=== PATIENT | female | born 1940 | race Caucasian/White ===

== ENCOUNTER → 2017-08-09 | Outpatient (CLI) | payer MEDICARE, OTHER ==
[~2017-08-09] MED LIST: ASPI1TAB35 PO; BEN20 PO; BENA20TA8 PO; CALC200T27 PO; CHOL200021 PO; CHOL200025 PO; CLI150 PO; DOC100 PO; DOCU-416 PO; LETPT PO; LETR2.5T4 PO; LEVO50TA80 PO; LEVO50TA86 PO; LOR5 PO; MULT-820 PO; MULT-865 PO; OXYGENHOME INH; PER PO; PRAV20TA65 PO; PRAV40TA77 PO; PRAV40TA78 PO; PRO25 PO; SOLI10TA8 PO; TRIA1CAP81 PO; TUM500 PO; [UNRECOGNIZED DRUG - REMARK]
[2017-08-09 11:42] LABS: PLATELET COUNT, AUTOMATED 206 K/uL (150-450)
[2017-08-09 11:53] VITALS: BP 136/66
== END ==
LOC: SPU 07:47
PROVIDERS: ATTEND Family Medicine
DX: E11.9 Type 2 diabetes mellitus without complications (principal); I10 Essential (primary) hypertension
CPT/HCPCS: 36415; 82310; 82374; 82435; 82565; 82947; 83036; 83970; 84132; 84295; 84443; 84520; 85025

== ENCOUNTER → 2017-11-09 | Outpatient (CLI) | payer MEDICARE, OTHER ==
[~2017-11-09] MED LIST changes: +BENA20TA64 PO; -BENA20TA8 PO
--- NOTE | 2017-11-09 14:35 | RADIOLOGY IMAGING REPORT ---
FACILITY: [facility] - [place], [place] PATIENT NAME: Aleah Arvizu : 1940 MR: [id number] V: [id number] EXAM DATE: ORDERING PHYSICIAN: RADHA BARRON TECHNOLOGIST: Location: [facility] Patient: Aleah Arvizu : 1940 Visit/Account:[id number] Date of Sevice: 11/09/2017 DEXA Scan Clinical history: Postmenopausal. Comparison: DEXA scan from 11/08/2015. LUMBAR SPINE: The bone mineral density (BMD) measured from L1-L4 correlates with a Z-score 0.4 and a T-score of 0.2 which is Normal as defined by the World Health Organization. The corresponding risk of fracture in the lumbar spine is Not increased compared with a young adult reference population. This value has d ecrease by 0.3 % since the prior study. More than 5% change is considered significant. FOREARM: The bone mineral density (BMD) measured in the ULTRADISTAL Left forearm, where trabecular bone predom inates, correlates with a Z-score of -0.9 and a T-score of -3.3 which is osteoporosis as defined by t he World Health Organization. The corresponding risk of fracture in the distal forearm is 8-12 times increased compared with a young adult reference population. This value has decrease by 2.3 % since the prior study. More than 5% change is considered significant. The bone mineral density (BMD) in the MIDSHAFT of the forearm, where cortical bone predominates, yasmany elates with a Z-score of -1.5 and a T-score of -3.9 which is osteoporosis as defined by the World [facility] Organization. The corresponding risk of fracture in the midshaft of the forearm is 12-16 times in creased compared with a young adult reference population. This value has decrease by 2.3 % since the prior study. More than 5% change is considered significant. IMPRESSION: 1. Lumbar spine: Normal. There has been 0.3% decrease in the bone mineral density since the previou s exam. 2. Left Forearm: Osteoporosis. There has been 2.3% decrease in the bone mineral density since the previous exam The next DEXA scan of this patient should include the following sites: L1-L4 and the left forearm. FRAX? WHO Fracture Risk Assessment Tool link: <http://www.shef.ac.uk/FRAX/tool.jsp?locationValue=9> PLEASE NOTE: 1) The World Health Organization defines low BMD as follows: T-score Normal > -1 Osteopenia < -1 and > -2.5 Osteoporosis < -2.5 without fractures Established osteoporosis < -2.5 with fractures 2) In general, you may wish to consider: Diagnosis Treatment Follow-up DEXA Normal BMD Prevention 2-3 years Osteopenia Prevention/therapy 1-2 years Osteoporosis Therapy Yearly 3) Fracture risk estimated from the T-score is more accurate for vertebral fractures (often spontane ous) than for hip fractures. Report Dictated By: Colleen Mukherjee MD at 11/09/2017 2:28 PM Report E-Signed By: Colleen Mukherjee MD at 11/09/2017 2:31 PM FLORENCIAN:AMICIVN
--- NOTE | 2017-11-13 09:06 | RADIOLOGY IMAGING REPORT ---
FACILITY: [facility] PATIENT NAME: FELTON GORMAN : [id number] MR: [id number] V: [id number] EXAM DATE: [id number] ORDERING PHYSICIAN: RADHA BARRON TECHNOLOGIST: Johnna Muse PROCEDURE: MAMMOGRAM SCREENING RIGHT UNILATERAL WITH CAD ASSISTED INTERPRETATION & 3D TOMOSYNTHESIS COMPARISON: Prior mammograms dated 11/08/16, 11/08/15, 11/05/14, 10/29/13, 10/28/12, 10/25/11 INDICATIONS: Screening FINDINGS: A small amount of fibroglandular tissue is seen throughout the breast. The parenchymal pattern has remained stable allowing for difference in mammographic technique & patient positioning. There is no evidence of malignant appearing mass, malignant appearing calcification or other secondary sign of malignancy in the Right breast. DIAGNOSTIC CATEGORY 1--NEGATIVE. RECOMMENDATIONS: ROUTINE MAMMOGRAM AND CLINICAL EVALUATION. IMPRESSION: BIRADS 1: Negative. No significant abnormality of the Right breast is seen. Dictated by: Colleen Mukherjee M.D. on 11/09/2017 at 15:40 Transcribed by: SIERRA on 11/12/2017 at 8:14 Approved by: Colleen Mukherjee M.D. on 11/13/2017 at 9:05 [facility]
== END ==
LOC: MAMO 00:28
PROVIDERS: ATTEND Family Medicine
DX: Z12.31 Encounter for screening mammogram for malignant neoplasm of breast (principal); Z78.0 Asymptomatic menopausal state; M81.0 Age-related osteoporosis without current pathological fracture
CPT/HCPCS: 77063; 77067; 77080

== ENCOUNTER 2017-12-14 14:49 | Inpatient (IN) | payer MEDICARE, OTHER ==
[~2017-12-14] VITALS: Ht 162.6 cm; Wt 105.3 kg
[2017-12-14] VITALS (11 sets, daily range): BP systolic 87–105; BP diastolic 49–63
[2017-12-14] MEDS ORDERED: NS(*) 0.9% 500 ML BAG 500 ML IV ONE (14:52)
--- NOTE | 2017-12-14 15:04 | ER Report ---
History and Physical Time Seen By : 14:59 HPI/ROS CHIEF COMPLAINT: Rectal bleeding HISTORY OF PRESENT ILLNESS: This is a 77-year-old female presents to the emergency department for rectal bleeding. Patient was seen at her primary care providers office noted to have rectal bleeding, dizziness and hypotension subs currently was sent to the ER for further evaluation. Patient arrives alert and oriented. Lips are pale. Patient states that about 10:00 this morning she developed some hematochezia, with some clots. Some lower abdominal cramping otherwise no pain. No chest pain or shortness of breath. No nausea or vomiting. She has had some lightheadedness and dizziness this afternoon. No rashes. No headaches. No recent fevers or chills. Did have a similar episode about 10 years ago, was admitted to the hospital and has done well since. REVIEW OF SYSTEMS: Constitutional: No fever, no chills. Eyes: No discharge. ENT: No sore throat. Cardiovascular: No chest pain, no palpitations. Respiratory: No cough, no shortness of breath. Gastrointestinal: As above. Genitourinary: No hematuria. Musculoskeletal: No back pain. Skin: No rashes. Neurological: No headache. Allergies: Coded Allergies: Penicillins (Verified Allergy, Mild, RASH, 12/14/17) Sulfa (Sulfonamide Antibiotics) (Verified Allergy, Mild, RASH, 12/14/17) Home Meds Active Scripts Pravastatin Sodium (PRAVASTATIN SODIUM) 40 Mg Tablet, 1 TAB PO QDAY, #90 TAB 4 Refills Prov:RADHA BARRON MD 07/11/17 Benazepril Hcl (BENAZEPRIL HCL) 20 Mg Tab, 1 TAB PO QDAY, #90 TAB 4 Refills Prov:RADHA BARRON MD 07/11/17 Levothyroxine Sodium (LEVOTHYROXINE SODIUM) 50 Mcg Tablet, 1 TAB PO QDAY for 90 Days, #90 TAB 4 Refills Prov:RADHA BARRON MD 07/11/17 Reported Medications Docusate Sodium (COLACE) 100 Mg Capsule, 1 CAP PO DAILY, CAPSULE 07/11/17 Cholecalciferol (Vitamin D3) (VITAMIN D3) 2,000 Unit Capsule, 2 CAP PO DAILY, CAPSULE 07/11/17 Oxygen (OXYGEN) Inha, 2 L INH at Night, L 10/09/16 Multivitamin (DAILY MULTIPLE VITAMIN) 1 Each Tablet, 1 EACH PO QDAY 10/09/16 Aspirin/Acetaminophen/Caffeine (EXCEDRIN EXTRA STRENGTH CAPLET) Unknown Strength Tablet, 1 TAB PO PRN PRN for PAIN 10/09/16 Past Medical/Surgical History The patient has a past medical and surgical history of hypertension, hypercholesterolemia, COPD, ex-smoker, sleep apnea, type II diabetes, hypothyroidism, breast cancer, lumpectomy, shingles, drinks alcohol daily, K-Dur removal, mastectomy on the left, bilateral total hips, basal cell carcinoma excision. Reviewed Nurses Notes: Yes Hx Smoking: No Smoking Status: Former Smoker Constitutional Vital Sign - Last 24 Hours 12/14/17 12/14/17 12/14/17 12/14/17 14:49 14:54 14:56 14:57 Temp 97.5 Pulse ? 104 Resp 16 B/P (MAP) 100/54 (69) 100/54 Pulse Ox 91 O2 Delivery Room Air 12/14/17 12/14/17 12/14/17 12/14/17 14:59 15:04 15:14 15:19 Pulse ??? 98 97 97 Resp 10 37 12 20 Pulse Ox 93 97 92 91 12/14/17 12/14/17 12/14/17 12/14/17 15:21 15:23 15:24 15:29 Pulse 96 102 Resp 19 14 B/P (MAP) 79/47 (58) 73/47 (56) Pulse Ox 92 95 12/14/17 12/14/17 12/14/17 12/14/17 15:34 15:38 15:39 15:44 Pulse 94 84 74 Resp 26 24 51 B/P (MAP) 62/54 (57) 61/43 (49) Pulse Ox 93 93 93 12/14/17 12/14/17 12/14/17 12/14/17 15:45 15:49 15:55 15:59 Pulse 75 80 Resp 28 19 B/P (MAP) 92/43 (59) Pulse Ox 96 93 O2 Delivery Nasal Cannula Nasal Cannula O2 Flow Rate 2.0 2 2 12/14/17 12/14/17 12/14/17 12/14/17 16:00 16:05 16:09 16:10 Pulse 81 Resp 12 B/P (MAP) 76/50 (59) 85/51 (62) 78/44 (55) Pulse Ox 95 O2 Delivery Nasal Cannula 12/14/17 12/14/17 12/14/17 12/14/17 16:15 16:30 16:45 16:49 Pulse 78 82 82 Resp 16 14 14 B/P (MAP) 101/51 (68) Pulse Ox 95 96 96 O2 Delivery Nasal Cannula Nasal Cannula Nasal Cannula O2 Flow Rate 2 2 2 12/14/17 12/14/17 12/14/17 12/14/17 17:12 17:15 17:20 17:30 Pulse 78 80 Resp 11 14 B/P (MAP) 96/45 (62) 71/41 (51) Pulse Ox 96 96 O2 Delivery Nasal Cannula Nasal Cannula O2 Flow Rate 2 2 12/14/17 12/14/17 12/14/17 12/14/17 17:35 17:45 17:50 18:00 Pulse 81 81 Resp 9 9 B/P (MAP) 81/69 (73) 94/47 (63) Pulse Ox 96 96 O2 Delivery Nasal Cannula Nasal Cannula O2 Flow Rate 2 2 12/14/17 12/14/17 12/14/17 12/14/17 18:05 18:10 18:15 18:30 Pulse 75 81 80 Resp 24 18 14 B/P (MAP) 87/58 (68) 88/47 (61) Pulse Ox 96 97 96 O2 Delivery Nasal Cannula Nasal Cannula Nasal Cannula O2 Flow Rate 2 2 2 12/14/17 12/14/17 12/14/17 12/14/17 18:35 18:40 18:45 18:55 Pulse 83 87 Resp 31 21 B/P (MAP) 84/41 (55) 84/39 (54) Pulse Ox 97 95 12/14/17 12/14/17 12/14/17 12/14/17 19:00 19:10 19:15 19:25 Pulse 85 96 Resp 12 25 B/P (MAP) 100/45 (63) 107/57 (74) Pulse Ox 96 96 12/14/17 12/14/17 12/14/17 12/14/17 19:26 19:30 19:35 19:40 Pulse 96 Resp 16 B/P (MAP) 96/68 (77) 83/47 (59) 94/46 (62) Pulse Ox 95 Intake and Output 9/12/14/17 12/15/17 15:00 23:00 07:00 Intake Total 1555 ml Output Total 20 ml Balance 1535 ml Physical Exam General Appearance: The patient is alert, pale, has no immediate need for airway protection and no signs of toxicity. Eyes: Pupils equal and round no pallor or injection. EOM's intact. Pale conjunctiva. ENT, Mouth: Mucous membranes are moist. Respiratory: There are no retractions, lungs are clear to auscultation. Cardiovascular: Regular rate and rhythm, no murmurs, clicks or rubs. Gastrointestinal: Abdomen is soft and, mild left sided tenderness, no masses, bowel sounds normal. No abdominal bruits. Initial exam showing hematochezia, progressing into melena. External exam of rectum unremarkable. Neurological: Alert and oriented X4, moving all extremities, following all commands, no focal neuro deficits. Skin: Warm and dry, no rashes. Musculoskeletal: Neck is supple non tender. Extremities are nontender, nonswollen and have full range of motion. DIFFERENTIAL DIAGNOSIS: After history and physical exam differential diagnosis was considered for abdominal pain in a female including but not limited to ovarian cyst, hemorrhoids, colitis, diverticulitis, pelvic inflammatory disease, ovarian torsion, urinary tract infection, and appendicitis. Medical Decision Making Data Points Result Diagram: 12/15/17 0511 12/15/17 0511 Laboratory Hematology Test 12/14/17 00:00 12/14/17 18:07 12/14/17 18:36 Total Bilirubin 0.6 mg/dl (0.2-1.3) Aspartate Amino Transf (AST/SGOT) 23 U/L (0-35) Alanine Aminotransferase (ALT/SGPT) 26 U/L (0-56) Alkaline Phosphatase 68 U/L (0-126) Total Protein 6.3 g/dl (6.3-8.2) Albumin 3.7 g/dl (3.5-5.0) Urine Color Yellow Urine Clarity Clear Urine pH 5.0 pH (4.8-9.5) Urine Specific [place] S3 Urine Protein Negative mg/dL (NEGATIVE) Urine Glucose (UA) Negative mg/dL (NEGATIVE) Urine Ketones Negative mg/dL (NEGATIVE) Urine Blood Negative (NEGATIVE) Urine Nitrite Negative (NEGATIVE) Urine Bilirubin Negative (NEGATIVE) Urine Urobilinogen Negative mg/dL (0.2-1.9) Urine Leukocyte Esterase Negative (NEGATIVE) Urine RBC 1 /HPF (0-2/HPF) Urine WBC None /HPF (0-5/HPF) Urine Squamous Epithelial Cells None /LPF (NONE-FEW) Urine Bacteria Negative /HPF (NONE-FEW) Urine Mucus None /HPF (NONE-FEW) Activated Partial Thromboplast Time 21 seconds (23-35) Chemistry Test 12/14/17 00:00 12/14/17 18:07 12/14/17 18:36 Total Bilirubin 0.6 mg/dl (0.2-1.3) Aspartate Amino Transf (AST/SGOT) 23 U/L (0-35) Alanine Aminotransferase (ALT/SGPT) 26 U/L (0-56) Alkaline Phosphatase 68 U/L (0-126) Total Protein 6.3 g/dl (6.3-8.2) Albumin 3.7 g/dl (3.5-5.0) Urine Color Yellow Urine Clarity Clear Urine pH 5.0 pH (4.8-9.5) Urine Specific [place] S3 Urine Protein Negative mg/dL (NEGATIVE) Urine Glucose (UA) Negative mg/dL (NEGATIVE) Urine Ketones Negative mg/dL (NEGATIVE) Urine Blood Negative (NEGATIVE) Urine Nitrite Negative (NEGATIVE) Urine Bilirubin Negative (NEGATIVE) Urine Urobilinogen Negative mg/dL (0.2-1.9) Urine Leukocyte Esterase Negative (NEGATIVE) Urine RBC 1 /HPF (0-2/HPF) Urine WBC None /HPF (0-5/HPF) Urine Squamous Epithelial Cells None /LPF (NONE-FEW) Urine Bacteria Negative /HPF (NONE-FEW) Urine Mucus None /HPF (NONE-FEW) Activated Partial Thromboplast Time 21 seconds (23-35) Coagulation Test 12/14/17 18:36 Activated Partial Thromboplast Time 21 seconds Urinalysis Test 12/14/17 18:07 Urine Color Yellow Urine Clarity Clear Urine pH 5.0 pH (4.8-9.5) Urine Specific [place] S3 Urine Protein Negative mg/dL (NEGATIVE) Urine Glucose (UA) Negative mg/dL (NEGATIVE) Urine Ketones Negative mg/dL (NEGATIVE) Urine Blood Negative (NEGATIVE) Urine Nitrite Negative (NEGATIVE) Urine Bilirubin Negative (NEGATIVE) Urine Urobilinogen Negative mg/dL (0.2-1.9) Urine Leukocyte Esterase Negative (NEGATIVE) Urine RBC 1 /HPF (0-2/HPF) Urine WBC None /HPF (0-5/HPF) Urine Squamous Epithelial Cells None /LPF (NONE-FEW) Urine Bacteria Negative /HPF (NONE-FEW) Urine Mucus None /HPF (NONE-FEW) EKG/Imaging EKG Interpretation 12 lead EKG: Time of EKG 1505. Rhythm: Sinus rhythm, Ventricular rate of 99bpm. [place]: Left QRS: Right bundle branch block ST segments: No ST elevation or Depression identified. No previous ekg for comparison. Imaging ADDENDUM #1 Addendum: The correct title for this study is "CTA of the chest, abdomen, and pelvis followed by routine contrast enhanced CT of the chest, abdomen, and pelvis". Report content is otherwise unchanged. Report Dictated By: Jose Gonzalez MD at 12/14/2017 8:29 PM Report E-Signed By: Jose Gonzalez MD at 12/14/2017 8:31 PM ORIGINAL REPORT Examination: CT chest, abdomen, and pelvis with contrast Comparison: None. History: Back pain and rectal bleeding. Procedure: Multiplanar arterial and venous phase imaging of the chest, abdomen, and pelvis with 100 mL intravenous Isovue 370. Reconstruction of the source data set includes multiplanar 2D in the sagittal and coronal planes, and 3D reconstructed coronal slab MIP series. One of the following dose optimization techniques was utilized in the performance of this exam: Automated exposure control; adjustment of the mA and/or kV according to the patient's size; or use of an iterative reconstruction technique. Specific details can be referenced in the facility's radiology CT exam operational policy. Findings: CTA: Advanced coronary calcifications. Questionable aortic valve calcification. Distal aortic arch and descending thoracic aorta advanced atherosclerosis. Advanced atherosclerotic plaque is also noted along the abdominal aorta, iliac arteries, and mesenteric vessels. No aortoiliac aneurysm or dissection. Dense calcification is present in the origins of the arch vessels but there is no evidence of significant luminal narrowing. Focal calcified plaque at the celiac artery, superior mesenteric artery, and left main renal artery origin results in mild stenosis (less than 50%). The inferior mesenteric artery is patent. CT chest: Mediastinum: Cardiac chamber size is normal. No pericardial effusion. Advanced coronary calcifications.4.2 cm dilated main pulmonary artery suggestive of pulmonary artery hypertension. Lungs and pleura: Scattered small regions of volume loss versus scarring. No consolidation or nodule. No pneumothorax, edema, or effusion. Airways: Negative. Diaphragm: Intact. CT abdomen and pelvis: Liver: Negative Gallbladder and biliary system: Negative Spleen: Negative Pancreas: Negative Adrenal glands: Negative Kidneys and urinary bladder: No renal mass or hydronephrosis. A few small cysts are present. The urinary bladder is partially obscured by streak artifact from the hip arthroplasties. Vessels: Portal venous system and IVC are within normal limits. Bowel and mesentery: Stomach is within normal limits. Large duodenal diverticula. No small bowel obstruction or inflammation. Appendix is unremarkable. Small amount of stool in the colon. Pancolonic diverticulosis with moderate diverticulosis of the sigmoid colon. No definite evidence of diverticular inflammation is identified. There is focal hyperdensity layering within the bowel lumen at the junction of the descending and sigmoid colon (series 3 image 578). This increases between the arterial and venous phases of the study and is suspicious for active hemorrhage. Pelvic organs: Age-appropriate. Free air/free fluid: None Lymph nodes: Negative Abdominal wall and subcutaneous tissues: Abdominal wall is intact. No focal abnormality within the visualized subcutaneous soft tissues. Osseous structures: Bilateral total hip arthroplasties. L4-L5 moderate degenerative disc disease with mild canal and lateral recess stenosis. Mild degenerative changes present elsewhere in the thoracolumbar spine. Right glenohumeral moderate osteoarthritis. No acute findings. IMPRESSION: 1. Pancolonic diverticulosis with findings suspicious for active colonic hemorrh ge at the junction of the descending and sigmoid colon. 2. Advanced coronary, aortoiliac, and mesenteric atherosclerosis. No aortic aneurysm. 3. Additional chronic findings as described above.Results were discussed with NAM PICKETT at 12/14/2017 6:03 PM. Report Dictated By: Jose Gonzalez MD at 12/14/2017 5:42 PM Report E-Signed By: Jose Gonzalez MD at 12/14/2017 6:12 PM WSN:[id number] IMPRESSION: 1. Pancolonic diverticulosis with findings suspicious for active colonic hemorrh ge at the junction of the descending and sigmoid colon. 2. Advanced coronary, aortoiliac, and mesenteric atherosclerosis. No aortic aneurysm. 3. Additional chronic findings as described above.Results were discussed with NAM PICKETT at 12/14/2017 6:03 PM. Report Dictated By: Jose Gonzalez MD at 12/14/2017 5:42 PM Report E-Signed By: Jose Gonzalez MD at 12/14/2017 6:12 PM WSN:[id number] ED Course/Re-evaluation Clinical Indication for ER IV: Hypotention, IV Access ED Course The patient was admitted to a room. A history of physical were obtained. Differential diagnoses were considered. An IV was started. A CBC, CMP, type and screen was obtained. Initial H&H 14.3, and 41.7, repeat after a one liter NS fluid bolus and one unit of blood 12.8, 37.7. Patient did have a hypotensive event as noted below. Now having some melena stools. She is now hypotensive with a blood pressure in the 60s systolic. Difficult IV access. We were able to gain IV access with a 20ga x 1.5inch to the right cephalic, a 20ga to the right hand and a 20ga to the left medial ankle. After fluid bolus given and one unit of O neg blood the patients color improved, her pressures did improve, to the 80's systolic. She was given an additional fluid bolus with pressures in the 90's systolic. While in the ED the patient had two large melena stools. After the patient was stable, did a CTA of the chest, with a chest, abd, pelvis ct showing, Pancolonic diverticulosis with findings suspicious for active colonic hemorrhage at the junction of the descending and sigmoid colon. I did contact Dr. Robledo as noted below. After his evaluation the patient was given a 20mcg desmopressin, attempted a central line which was unsuccessful. Pt was given one more unit of blood in the ED, BP 96 systolic, hr in the 90's. The patient will be receiving platelets. the patient will be admitted to the ICU for colonic hemorrhage. 12/14/2017 3:56:02 pm The patients daughter was at the beside, yelled out for help, her mother became diaphoretic, pale and had a near syncopal episode, this lasted a couple of minutes. Her systolic pressures were in the 60's-70's, hr remained in the 70's. Palor did improve. 12/14/2017 4:22:18 pm the patient was probably moved to trauma room 5, additional IV and the foot was started, IV fluid boluses were given, O- blood was given. Patient continues to have melena stools. Dr. Kelechi Camarillo is at the bedside with me, he is ultrasounding the patient's chest and abdomen, the daughter is at the bedside. Patient will be sent over to radiology, she is stabilized, blood pressures have improved, last blood pressure in the 80s systolic. Patient states she is feeling better. There is a concern of an aneurysm. At this time Dr. Camarillo did ask the patient what her code status is, she does not want resuscitation or ventilation, she is okay with intubation for surgery, if this was required. 12/14/2017 4:44:[address] Camarillo was able to use the ultra sound and cannulate a vein in the right upper arm. 12/14/2017 6:23:05 pm I did speak with Dr. Robledo, he will be coming to evaluate the patient. 12/14/2017 7:32:[address] Robledo here, will place central line, will admit to ICU for colonic hemorrhage. Decision to Disposition Date: Dec 14, 2017 Decision to Disposition Time: 19:30 Depart Departure Latest Vital Signs Vital Signs Date Time Temp Pulse Resp B/P (MAP) Pulse Ox O2 Delivery O2 Flow Rate FiO2 12/14/17 19:40 94/46 (62) 12/14/17 19:35 96 16 95 12/14/17 18:30 Nasal Cannula 2 12/14/17 14:57 97.5 Impression: Primary Impression: Colonic hemorrhage Condition: Critical Disposition: Admitted from ER (To ICU) Referrals: RADHA BARRON MD (PCP) NAM PICKETT [employer] Dec 14, 2017 15:04
--- NOTE | 2017-12-14 15:12 | EKG ---
FACILITY: [facility] PATIENT NAME: FELTON GORMAN : [id number] MR: [id number] V: [id number] EXAM DATE: ORDERING PHYSICIAN: NAM PICKETT TECHNOLOGIST: CHANEL Test Reason : HYPERTENSION Blood Pressure : / mmHG Vent. Rate : 099 BPM Atrial Rate : 099 BPM P-R Int : 164 ms QRS Dur : 132 ms QT Int : 378 ms P-R-T Axes : 035 -71 022 degrees QTc Int : 485 ms Sinus rhythm with occasional premature ventricular complexes Left axis deviation Right bundle branch block Inferior infarct , age undetermined Abnormal ECG No previous ECGs available Confirmed by DRISS CASTRO ([id number]) on 12/14/2017 6:57:42 PM Referred By: Confirmed By:DRISS CASTRO
[2017-12-14 15:51] LABS: PLATELET COUNT, AUTOMATED 348 K/uL (150-450)
[2017-12-14] MEDS ORDERED: NS(*) 0.9% 1000 ML BAG 1,000 ML IV ONE (16:05)
[2017-12-14] MEDS ORDERED: NS(*) 0.9% 50 ML BAG 50 ML ONE (16:24)
[2017-12-14] MEDS ORDERED: IOPAMIDOL 76% 75 ML INFUS BTL 0 ML ONE (16:24)
[2017-12-14] MEDS ORDERED: IOPAMIDOL 76% 100 ML INFUS BTL 100 ML ONE (16:26)
[2017-12-14 17:46] LABS: PLATELET COUNT, AUTOMATED 234 K/uL (150-450)
--- NOTE | 2017-12-14 18:15 | RADIOLOGY IMAGING REPORT ---
FACILITY: [facility] PATIENT NAME: Aleah Arvizu : 1940 MR: [id number] V: [id number] EXAM DATE: ORDERING PHYSICIAN: NAM PICKETT TECHNOLOGIST: Location: [facility] Patient: Aleah Arvizu : 1940 Visit/Account:[id number] Date of Sevice: 12/14/2017 ADDENDUM #1 Addendum: The correct title for this study is "CTA of the chest, abdomen, and pelvis followed by rout ine contrast enhanced CT of the chest, abdomen, and pelvis". Report content is otherwise unchanged. Report Dictated By: Jose Gonzalez MD at 12/14/2017 8:29 PM Report E-Signed By: Jose Gonzalez MD at 12/14/2017 8:31 PM ORIGINAL REPORT Examination: CT chest, abdomen, and pelvis with contrast Comparison: None. History: Back pain and rectal bleeding. Procedure: Multiplanar arterial and venous phase imaging of the chest, abdomen, and pelvis with 100 m L intravenous Isovue 370. Reconstruction of the source data set includes multiplanar 2D in the sagitt al and coronal planes, and 3D reconstructed coronal slab MIP series. One of the following dose optimization techniques was utilized in the performance of this exam: Autom ated exposure control; adjustment of the mA and/or kV according to the patient's size; or use of an i terative reconstruction technique. Specific details can be referenced in the facility's radiology C T exam operational policy. Findings: CTA: Advanced coronary calcifications. Questionable aortic valve calcification. Distal aortic arch an d descending thoracic aorta advanced atherosclerosis. Advanced atherosclerotic plaque is also noted a long the abdominal aorta, iliac arteries, and mesenteric vessels. No aortoiliac aneurysm or dissectio n. Dense calcification is present in the origins of the arch vessels but there is no evidence of signifi cant luminal narrowing. Focal calcified plaque at the celiac artery, superior mesenteric artery, and left main renal artery o rigin results in mild stenosis (less than 50%). The inferior mesenteric artery is patent. CT chest: Mediastinum: Cardiac chamber size is normal. No pericardial effusion. Advanced coronary calcification s.4.2 cm dilated main pulmonary artery suggestive of pulmonary artery hypertension. Lungs and pleura: Scattered small regions of volume loss versus scarring. No consolidation or nodule. No pneumothorax, edema, or effusion. Airways: Negative. Diaphragm: Intact. CT abdomen and pelvis: Liver: Negative Gallbladder and biliary system: Negative Spleen: Negative Pancreas: Negative Adrenal glands: Negative Kidneys and urinary bladder: No renal mass or hydronephrosis. A few small cysts are present. The urin sai bladder is partially obscured by streak artifact from the hip arthroplasties. Vessels: Portal venous system and IVC are within normal limits. Bowel and mesentery: Stomach is within normal limits. Large duodenal diverticula. No small bowel obst ruction or inflammation. Appendix is unremarkable. Small amount of stool in the colon. Pancolonic div erticulosis with moderate diverticulosis of the sigmoid colon. No definite evidence of diverticular i nflammation is identified. There is focal hyperdensity layering within the bowel lumen at the junctio n of the descending and sigmoid colon (series 3 image 578). This increases between the arterial and v enous phases of the study and is suspicious for active hemorrhage. Pelvic organs: Age-appropriate. Free air/free fluid: None Lymph nodes: Negative Abdominal wall and subcutaneous tissues: Abdominal wall is intact. No focal abnormality within the v isualized subcutaneous soft tissues. Osseous structures: Bilateral total hip arthroplasties. L4-L5 moderate degenerative disc disease with mild canal and lateral recess stenosis. Mild degenerative changes present elsewhere in the thoracolu mbar spine. Right glenohumeral moderate osteoarthritis. No acute findings. IMPRESSION: 1. Pancolonic diverticulosis with findings suspicious for active colonic hemorrh ge at the junction o f the descending and sigmoid colon. 2. Advanced coronary, aortoiliac, and mesenteric atherosclerosis. No aortic aneurysm. 3. Additional chronic findings as described above.Results were discussed with NAM PICKETT at 11/25 6:03 PM. Report Dictated By: Jose Gonzalez MD at 12/14/2017 5:42 PM Report E-Signed By: Jose Gonzalez MD at 12/14/2017 6:12 PM WSN:[id number]
--- NOTE | 2017-12-14 18:15 | RADIOLOGY IMAGING REPORT ---
FACILITY: [facility] [place] PATIENT NAME: Aleah Arvizu : 1940 MR: [id number] V: [id number] EXAM DATE: ORDERING PHYSICIAN: NAM PICKETT TECHNOLOGIST: Location: [facility] Patient: Aleah Arvizu : 1940 Visit/Account:[id number] Date of Sevice: 12/14/2017 ADDENDUM #1 Addendum: The correct title for this study is "CTA of the chest, abdomen, and pelvis followed by rout ine contrast enhanced CT of the chest, abdomen, and pelvis". Report content is otherwise unchanged. Report Dictated By: Jose Gonzalez MD at 12/14/2017 8:29 PM Report E-Signed By: Jose Gonzalez MD at 12/14/2017 8:31 PM ORIGINAL REPORT Examination: CT chest, abdomen, and pelvis with contrast Comparison: None. History: Back pain and rectal bleeding. Procedure: Multiplanar arterial and venous phase imaging of the chest, abdomen, and pelvis with 100 m L intravenous Isovue 370. Reconstruction of the source data set includes multiplanar 2D in the sagitt al and coronal planes, and 3D reconstructed coronal slab MIP series. One of the following dose optimization techniques was utilized in the performance of this exam: Autom ated exposure control; adjustment of the mA and/or kV according to the patient's size; or use of an i terative reconstruction technique. Specific details can be referenced in the facility's radiology C T exam operational policy. Findings: CTA: Advanced coronary calcifications. Questionable aortic valve calcification. Distal aortic arch an d descending thoracic aorta advanced atherosclerosis. Advanced atherosclerotic plaque is also noted a long the abdominal aorta, iliac arteries, and mesenteric vessels. No aortoiliac aneurysm or dissectio n. Dense calcification is present in the origins of the arch vessels but there is no evidence of signifi cant luminal narrowing. Focal calcified plaque at the celiac artery, superior mesenteric artery, and left main renal artery o rigin results in mild stenosis (less than 50%). The inferior mesenteric artery is patent. CT chest: Mediastinum: Cardiac chamber size is normal. No pericardial effusion. Advanced coronary calcification s.4.2 cm dilated main pulmonary artery suggestive of pulmonary artery hypertension. Lungs and pleura: Scattered small regions of volume loss versus scarring. No consolidation or nodule. No pneumothorax, edema, or effusion. Airways: Negative. Diaphragm: Intact. CT abdomen and pelvis: Liver: Negative Gallbladder and biliary system: Negative Spleen: Negative Pancreas: Negative Adrenal glands: Negative Kidneys and urinary bladder: No renal mass or hydronephrosis. A few small cysts are present. The urin sai bladder is partially obscured by streak artifact from the hip arthroplasties. Vessels: Portal venous system and IVC are within normal limits. Bowel and mesentery: Stomach is within normal limits. Large duodenal diverticula. No small bowel obst ruction or inflammation. Appendix is unremarkable. Small amount of stool in the colon. Pancolonic div erticulosis with moderate diverticulosis of the sigmoid colon. No definite evidence of diverticular i nflammation is identified. There is focal hyperdensity layering within the bowel lumen at the junctio n of the descending and sigmoid colon (series 3 image 578). This increases between the arterial and v enous phases of the study and is suspicious for active hemorrhage. Pelvic organs: Age-appropriate. Free air/free fluid: None Lymph nodes: Negative Abdominal wall and subcutaneous tissues: Abdominal wall is intact. No focal abnormality within the v isualized subcutaneous soft tissues. Osseous structures: Bilateral total hip arthroplasties. L4-L5 moderate degenerative disc disease with mild canal and lateral recess stenosis. Mild degenerative changes present elsewhere in the thoracolu mbar spine. Right glenohumeral moderate osteoarthritis. No acute findings. IMPRESSION: 1. Pancolonic diverticulosis with findings suspicious for active colonic hemorrh ge at the junction o f the descending and sigmoid colon. 2. Advanced coronary, aortoiliac, and mesenteric atherosclerosis. No aortic aneurysm. 3. Additional chronic findings as described above.Results were discussed with NAM PICKETT at 11/25 6:03 PM. Report Dictated By: Jose Gonzalez MD at 12/14/2017 5:42 PM Report E-Signed By: Jose Gonzalez MD at 12/14/2017 6:12 PM WSN:[id number]
[2017-12-14 18:53] LABS: INR 1.11
[2017-12-14] MEDS ORDERED: DESMOPRESSIN ACET IVPB ONE (19:15)
[2017-12-14] MEDS ORDERED: NS 0.9% IVPB ONE (19:15)
--- NOTE | 2017-12-14 21:24 | Gen Surgery History & Physical ---
History of Present Illness Chief Complaint melena History of Present Illness 77 y/o female with known hx of diverticular bleed 10 years ago who developed BRBPR today at 1000. Pt arrived to [facility] ED with hypotension. Treated with one unit PRBC after syncope. Difficult IV access- three peripheral [address] scan of the abd with pancolonic diverticula and active bleeding within the lumen at the descending colon- sigmoid junction. HgB 14--> 12.8 Denies abd pain; Does report narrowing of BMs over the past one week Takes ASA 4-5 times a week (Full strength) as Excedrin ES for "aches" Last Colonoscopy 10 years ago. No family hx of Colon CA Surgery Consulted (1815 hours): DDAVP given: 20 mcg per pharmacy as max dose Platelets ordered (Coming from [place]) Transfused additional unit of PRBC Attempted Right IJ Cordis- unsuccessful Yanes placement INR ordered- normal PMHX: HLD HTN Hypothyroidism Morbid Obesity BMI 40 Breast Cancer "Prediabetic" Pulm HTN (By CT scan: dilated main pulm artery) Severe atherosclerosis (coronary, mesenteric, aortoiliac calcifications) Restless Leg Hypoxia- Home O2 3 liters N/C Antiplatelet therapy (Excedrin ES) PSHX: Left Mastectomy Bilateral Cataract Bilateral hip replacements Right retinal detachment MEDS: Benazepril 20 QD Pravastatin 40 QD Vit D Synthroid Allergies: PCN and Sulfa- Hives/edema Social: Lives alone Prior Smoker- quit 2007 after 40 p/y ETOH: 2 glasses wine daily FHx: Mother age 84, CHF Father age 87, Bladder CA Sister , [place] Brother alive, CAD History Home Meds Active Scripts Pravastatin Sodium (PRAVASTATIN SODIUM) 40 Mg Tablet, 1 TAB PO QDAY, #90 TAB 4 Refills Prov:RADHA BARRON MD 07/11/17 Benazepril Hcl (BENAZEPRIL HCL) 20 Mg Tab, 1 TAB PO QDAY, #90 TAB 4 Refills Prov:RADHA BARRON MD 07/11/17 Levothyroxine Sodium (LEVOTHYROXINE SODIUM) 50 Mcg Tablet, 1 TAB PO QDAY for 90 Days, #90 TAB 4 Refills Prov:RADHA BARRON MD 07/11/17 Reported Medications Docusate Sodium (COLACE) 100 Mg Capsule, 1 CAP PO DAILY, CAPSULE 07/11/17 Cholecalciferol (Vitamin D3) (VITAMIN D3) 2,000 Unit Capsule, 2 CAP PO DAILY, CAPSULE 07/11/17 Oxygen (OXYGEN) Inha, 2 L INH at Night, L 10/09/16 Multivitamin (DAILY MULTIPLE VITAMIN) 1 Each Tablet, 1 EACH PO QDAY 10/09/16 Aspirin/Acetaminophen/Caffeine (EXCEDRIN EXTRA STRENGTH CAPLET) Unknown Strength Tablet, 1 TAB PO PRN PRN for PAIN 10/09/16 Allergies: Coded Allergies: Penicillins (Verified Allergy, Mild, RASH, 12/14/17) Sulfa (Sulfonamide Antibiotics) (Verified Allergy, Mild, RASH, 12/14/17) Patient History: FH: type 2 diabetes Review of Systems All Systems Reviewed/Normal: Yes, Except as Noted Constitutional: No Fever, No Weight Loss, No Weight Gain, No Chills, No Night Sweats Neurological: Syncope (Today only), Weakness; No Confusion, No Dizziness, No Slurred Speech Eyes: No Vision Change, No Loss of Vision, No Photophobia ENT: No Hearing Loss, No Sinus Congestion, No Sore Throat, No Ear Ache, No Tinnitus Cardiovascular: No Chest Pain, No Palpitations, No Orthostatic Hypotension Respiratory: Other (NEGRON with fast walking or stairs; Home Oxygen use); No Shortness of Breath, No Cough, No Wheezing Gastrointestinal: No Nausea, No Vomiting, No Diarrhea, No Dysphagia, No Constipation, No Early Satiety, No Hematemesis; Hematochezia; No Melena, No Abdominal Pain Genitourinary: Other; No Dysuria, No Hematuria, No Urinary Incontinence Musculoskeletal: Pain, Impaired Mobility Psychiatric: Other; No Depression, No Anxiety Exam General Appearance: Alert, Awake, No Acute Distress, Afebrile Neuro: No Gross deficits Eyes: PERRLA ENT: Normal, Moist Mucous Membranes Neck: No Masses Cardiovascular: Normal Rhythm & Peripheral Pulses, Regular Rate and Rhythm, No Edema, No JVD Respiratory: No Respiratory Distress, Clear to Auscultation Chest: Other (Left mastectomy) GI: Abd Soft and Non-Tender, Other (Obese BMI 40; RECTAL: old blood, no mass, non tender, no hemorrhoids ) Lymph: No Adenopathy Musculoskeletal: No Weakness/Pain Extremities: Soft and Non Tender, Warm, Pulses, Perfused; No Edema Integumentary: Skin Intact without Lesion / Mass Psych: Alert & Oriented X3, Appropriate Mood & Affect Medical Decision Making Data Points Result Diagram: 12/16/1754512/16/17545 EKG / Imaging EKG Interpretation QTc Int : 485 ms Sinus rhythm with occasional premature ventricular complexes Left axis deviation Right bundle branch block Inferior infarct , age undetermined Abnormal ECG No previous ECGs available Monitor Interpretation: Normal Sinus Rhythm Pre-Admit Course ED Medications DDAVP; PRBC x 2 Medical Record Review: Yes Assessment and Plan Problems: (1) Breast cancer Status: Chronic Assessment & Plan: Avoid IVs on the left arm (2) Diabetes Status: Chronic Assessment & Plan: Monitor FS; Measure Hem A1c (3) Hypertension Status: Chronic Assessment & Plan: Hold Benazepril at this time due to her hypotension (4) Hyperlipidemia Status: Chronic Assessment & Plan: Statin daily (5) Hypothyroid Status: Chronic Assessment & Plan: Synthroid daily (6) Colonic hemorrhage Status: Acute Assessment & Plan: Admit to ICU; place additional access if bleeding resumes; Transfuse platelets; Hold ASA; Q 6 hours CBC; Bleeding localized by CTA to proximal sigmoid Colon (7) Acute blood loss anemia Status: Acute Assessment & Plan: Transfuse 2 units PRBC; Monitor (8) Hypotension due to blood loss Status: Acute Assessment & Plan: Blood Product resuscitation for bleeding colon appears to be the source PIVs and T&C; Failed placement of Right IJ Cordis- despite being in the vein (confirmed by US) would not thread--will place femoral vein cordis (pt desires to hold off unless she develops further bleeding) Yanes to monitor urine output/end organ perfusion (9) Pulmonary artery hypertension Status: Chronic Assessment & Plan: Dilated main Pulmonary Artery on CT scan to 4.2 cm ECHO to assess Pulm consult as outpt (10) Antiplatelet or antithrombotic long-term use Status: Chronic Assessment & Plan: Bleeding likely made worse by home aspirin use, full strength 4-5 times weekly DDAVP ordered at 0.3 mcg/kg x 1 (dose adjusted by pharmacy secondary to warning in max dose greater than 20 mcg) Transfuse 6pack platelets (ordered from [facility]) Transfuse in ICU on arrival Stop Excedrin use (11) Morbid obesity due to excess calories Status: Chronic Assessment & Plan: NPO at this time Will place on carb restricted diet once taking PO Nutrition consult (12) DNR (do not resuscitate) Status: Acute Assessment & Plan: Daughter and patient discussed and agreed to this plan Central Venous Access Medical Necessity for Access: Hemodynamic Monitoring, IV Access Time Spent: > 30 min Venous Thromboembolism VTE Risk Patient's VTE Risk: High (Morbid Obesity; Hemorrhage) VTE Diagnostic Test 2 Days Prior to Admit: No Antithrombotics Is Pt On Any Antithrombotics?: No Prophylaxis Tx Contraindicated Pharmacological Contraindicati: Active Bleeding Problem Qualifiers (1) Breast cancer: Breast location: unspecified site of breast Estrogen receptor status: unspecified Patient sex: female Laterality: left Qualified Codes: C50.912 - Malignant neoplasm of unspecified site of left female breast (2) Diabetes: Diabetes mellitus type: type 2 Diabetes mellitus longterm insulin use: without termite inspector use (3) Hypertension: Hypertension type: unspecified Qualified Codes: I10 - Essential (primary) hypertension (4) Hyperlipidemia: Hyperlipidemia type: unspecified Qualified Codes: E78.5 - Hyperlipidemia, unspecified (5) Hypothyroid: Hypothyroidism type: unspecified Qualified Codes: E03.9 - Hypothyroidism, unspecified LOUANN WALL MD Dec 14, 2017 21:24
[2017-12-14] MEDS ORDERED: NALOXONE HCL 0.4 MG/ML VIAL IVP PRN (21:25)
[2017-12-14] MEDS ORDERED: NS(*) 0.9% 500 ML BAG 500 ML ONE (21:44)
[2017-12-14] MEDS ORDERED: ONDANSETRON 4 MG/2 ML VIAL IVP PRN (23:25)
[2017-12-14 23:29] LABS: PLATELET COUNT, AUTOMATED 236 K/uL (150-450)
[2017-12-14] MEDS: MORPHINE 2 MG/ML SYR IVP PRN (23:31)
[2017-12-14] MEDS: ACETAMINOPHEN 325 MG TAB PO PRN (23:31)
[2017-12-14] MEDS: D5 1/2 NS(*) 1000 ML BAG 1,000 ML IV PRN (23:31)
[2017-12-14 23:35] LABS: INR 1.1
[2017-12-15] VITALS (82 sets, daily range): BP systolic 74–134; BP diastolic 33–99; Ht 162.6 cm; Wt 105.3 kg
[2017-12-15] MEDS ORDERED: NS(*) 0.9% 250 ML BAG 250 ML ONE (01:32)
[2017-12-15 06:06] LABS: PLATELET COUNT, AUTOMATED 228 K/uL (150-450)
[2017-12-15] MEDS: D5 1/2 NS(*) 1000 ML BAG 1,000 ML IV PRN (07:02)
--- NOTE | 2017-12-15 08:44 | General Surgery Progress Note ---
Subjective Patient Complains of: Neurological: No: Syncope, Confusion, Weakness, Dizziness, Slurred Speech Cardiovascular: No: Chest Pain, Palpitations, Orthostatic Hypotension Respiratory: Shortness of Breath; No: Cough, Congestion, Wheezing Gastrointestinal: Nausea; No Vomiting, No Flatus, No Bowel Movement Genitourinary: Other (Yanes in place); No Dysuria, No Hematuria, No Urinary Incontinence Musculoskeletal: Pain (Lower back pain- baseline but increased) Physical Exam Vital Signs Date Time Temp Pulse Resp B/P (MAP) Pulse Ox O2 Delivery O2 Flow Rate FiO2 12/15/17 07:04 95 Nasal Cannula 2.0 12/15/17 07:00 89 17 94/50 (65) 12/15/17 06:15 98.0 Intake and Output 12/15/17 07:00 Intake Total 3351 ml Output Total 705 ml Balance 2646 ml Intake IV Total 2677 ml Blood Product 674 ml Output Urine Total 705 ml General Appearance: Alert, Awake, No Acute Distress, Afebrile Neuro: No Gross deficits Eyes: PERRLA, Other (EOMI) ENT: Normal, Moist Mucous Membranes Cardiovascular: Normal Rhythm & Peripheral Pulses, Regular Rate and Rhythm, No Edema, No JVD Respiratory: No Respiratory Distress, Clear to Auscultation GI: Soft and Non-Tender, Other (Hypoactive BS) : Other (Yanes in place- clear) Musculoskeletal: No Weakness/Pain Extremities: Soft and Non Tender, Warm, Pulses, Perfused; No Edema Integumentary: Skin Intact without Lesion / Mass Psych: Alert & Oriented X3, Appropriate Mood & Affect Result Diagram: 12/15/17 0511 12/15/17 0511 Hem A1c - pending INR normal Troponin normal Lactate normal in early AM Monitor Interpretation: Normal Sinus Rhythm Assessment and Plan Problems: (1) Breast cancer Status: Chronic Assessment & Plan: Avoid IVs on the left arm (2) Diabetes Status: Chronic Assessment & Plan: Monitor FS; Measure Hem A1c 12/15/17: A1c- pending; Blood glucose 200; will decrease dextrose in IVF; remains NPO until no bleeding x >24 hours (3) Hypertension Status: Chronic Assessment & Plan: Hold Benazepril at this time due to her hypotension 12/15/17: Continue to hold; BP still marginal (4) Hyperlipidemia Status: Chronic Assessment & Plan: Statin daily (5) Hypothyroid Status: Chronic Assessment & Plan: Synthroid daily (6) Colonic hemorrhage Status: Acute Assessment & Plan: Admit to ICU; place additional access if bleeding resumes; Transfuse platelets; Hold ASA; Q 6 hours CBC; Bleeding localized by CTA to proximal sigmoid Colon 12/15/17: No further GI bleeding; Continue to monitor in the ICU; Hgb 12 (7) Acute blood loss anemia Status: Acute Assessment & Plan: Transfuse 2 units PRBC; Monitor 12/15/17: HgB 12.0 this AM (after 2 units PRBC in ED) (8) Hypotension due to blood loss Status: Acute Assessment & Plan: Blood Product resuscitation for bleeding colon appears to be the source PIVs and T&C; Failed placement of Right IJ Cordis- despite being in the vein (confirmed by US) would not thread--will place femoral vein cordis (pt desires to hold off unless she develops further bleeding) Yanes to monitor urine output/end organ perfusion EKG on admission: QTc Int : 485 ms Sinus rhythm with occasional premature ventricular complexes Left axis deviation Right bundle branch block Inferior infarct , age undetermined Abnormal ECG No previous ECGs available 12/15/17: Continue to monitor in the ICU; Mean BP 60-65: treated with 2 FFP overnight when she had mild hypotension; continue to hold MARCIO inhibitor; no new bleeding noted (9) Pulmonary artery hypertension Status: Chronic Assessment & Plan: Dilated main Pulmonary Artery on CT scan to 4.2 cm ECHO to assess Pulm consult as outpt 12/15/17: ECHO today (10) Antiplatelet or antithrombotic long-term use Status: Chronic Assessment & Plan: Bleeding likely made worse by home aspirin use, full strength 4-5 times weekly DDAVP ordered at 0.3 mcg/kg x 1 (dose adjusted by pharmacy secondary to warning in max dose greater than 20 mcg) Transfuse 6pack platelets (ordered from [facility]) Transfuse in ICU on arrival Stop Excedrin use (11) Morbid obesity due to excess calories Status: Chronic Assessment & Plan: NPO at this time Will place on carb restricted diet once taking PO; Nutrition consult as out pt (12) DNR (do not resuscitate) Status: Acute Assessment & Plan: Daughter and patient discussed and agreed to this plan (13) Hyponatremia Status: Acute Assessment & Plan: 12/15/17: Limit fluids: NPO; Change IVF to NS primarily and decrease rate; Monitor (14) RBBB Status: Acute Assessment & Plan: 12/15/17: EKG on admission Left axis deviation Right bundle branch block Inferior infarct , age undetermined No previous ECGs available ECHO today Central Venous Access Medical Necessity for Access: Hemodynamic Monitoring, IV Access Condition Remain in the ICU due to symptoms of SOB and borderline blood pressure with me ans 60-65 despite fluids SCDs for DVT prophylaxis Time Spent: > 30 min Exam Sepsis Risk: No Definite Risk Problem Qualifiers (1) Breast cancer: Breast location: unspecified site of breast Estrogen receptor status: unspecified Patient sex: female Laterality: left Qualified Codes: C50.912 - Malignant neoplasm of unspecified site of left female breast (2) Diabetes: Diabetes mellitus type: type 2 Diabetes mellitus buttermaker continuous churn insulin use: without buttermaker continuous churn use (3) Hypertension: Hypertension type: unspecified Qualified Codes: I10 - Essential (primary) hypertension (4) Hyperlipidemia: Hyperlipidemia type: unspecified Qualified Codes: E78.5 - Hyperlipidemia, un specified (5) Hypothyroid: Hypothyroidism type: unspecified Qualified Codes: E03.9 - Hypothyroidism, unspecified LOUANN WALL MD Dec 15, 2017 08:44
[2017-12-15] MEDS ORDERED: D5 1/2 NS(*) 1000 ML BAG 1,000 ML IV PRN (08:45)
[2017-12-15] MEDS ORDERED: NON-FORMULARY MEDICATION MISCELL (Oxygen 2 L) INH SCH (08:45)
[2017-12-15] MEDS: MULTIVITAMINS TAB PO SCH (09:10)
[2017-12-15] MEDS: LEVOTHYROXINE SOD 0.05 MG TAB PO SCH (09:10)
[2017-12-15] MEDS: PRAVASTATIN SOD 20 MG TAB PO SCH (09:10)
[2017-12-15] MEDS: PANTOPRAZOLE SOD 40 MG IV VIAL IVP SCH (09:11)
[2017-12-15] MEDS: NS(*) 0.9% 1000 ML BAG 1,000 ML IV PRN ×2 (09:12→21:49)
--- NOTE | 2017-12-15 12:15 | Medical Nutrition Therapy ---
Nutrition Anthropometrics Height (Inches): 64.00 Height (Calculated Centimeters: [phone] Weight (Pounds): 232 Weight (Calculated Kilograms): 105.318 Garrison Nutrition Score: Adequate Garrison Nutrition Risk Score: 18 Dietary Referral Nutrition Risk Factors: Nutrition Risk Comment: Physical Findings Physical Appearance: Morbidly Obese 40+ Skin Appearance Skin Appearance: Edema Edema Location Modifier: Edema Location: Type of Edema: Degree of Edema: Gastrointestinal Symptoms GI Symtoms: Blood in Stool Tube Present: Bowel Sounds: Recent Bowel Pattern: Stool Characteristics: Nutritional Diagnosis Nutritional Risk Acuity 2: GI Malabsorption Nutritional Risk Acuity 3: Cancer, GI Bleed, Morbid Obesity Past Medical History: Breast cancer, T2DM, HLD, HTN, hypothyroidism, morbid obesity, pulmonary HTN, peptic ulcers Nutritional Acuity: 2-Moderate Nutrition Diagnosis: Altered GI Function Nutrition Etiology: Physiological Causes Nutrition Problem/Etiology/Sym: Altered GI function related to physiological causes as evidenced by PMH of diverticular dx and current condition with blood in stool Adjusted Energy Requirement Re: 1645 ([id number] (adj for obesity x AF 1.3-1.4)) Protein Requirement: 84 (.8-1 g/kg actual BW) Fluid Requirement: 2100 (20 ml/kg actual wt) Diet Type: NPO (Nothing by Mouth) Nutrition Intervention: Incr diet as tolerated Nutrition Monitoring & Eval RD Patient Assessment Time: [address] Assessment Type: RD Assessment Patient Nutrition Acuity: 2-Moderate Follow Up Date: Dec 20, 2017 Nutritional Comment: 12/15 Pt admitted with blood in stool and will be treated for GI bleed. PMH of diverticular dx, T2DM, breast cancer and peptic ulcers. Currently NPO day 1 for conservative management. BMI indicates morbid obesity and MD is requesting outpatient nutrition consultation. Plan to restrict carbs once PO intake resumes. Notable labs include NA 131 and glc ranging from 164-208. Will cont to monitor clinical course and diet advancement. -DONNA SORIANO Dec 15, 2017 12:15
[2017-12-15] MEDS: ACETAMINOPHEN 325 MG TAB PO PRN ×2 (12:29→21:40)
[2017-12-15] MEDS ORDERED: SALINE 0.65% NAS SPR 44 ML BTL PRN (14:45)
[2017-12-15] MEDS ORDERED: KETOROLAC 15 MG/ML VIAL IVP ONE (16:35)
[2017-12-16] VITALS (22 sets, daily range): BP systolic 83–150; BP diastolic 53–81
[2017-12-16] MEDS: MORPHINE 2 MG/ML SYR IVP PRN ×3 (01:26→05:27)
[2017-12-16] MEDS: LEVOTHYROXINE SOD 0.05 MG TAB PO SCH (05:27)
[2017-12-16 06:12] LABS: PLATELET COUNT, AUTOMATED 184 K/uL (150-450)
[2017-12-16] MEDS ORDERED: FUROSEMIDE 20 MG/2 ML VIAL IVP ONE ×2 (07:35→13:15)
[2017-12-16] MEDS: ACETAMINOPHEN 500 MG TAB PO SCH ×2 (08:30→17:43)
[2017-12-16] MEDS: MULTIVITAMINS TAB PO SCH (08:30)
[2017-12-16] MEDS: PRAVASTATIN SOD 20 MG TAB PO SCH (08:30)
[2017-12-16] MEDS: GABAPENTIN 100 MG CAP PO SCH ×3 (08:30→20:36)
[2017-12-16] MEDS: PANTOPRAZOLE SOD 40 MG IV VIAL IVP SCH (08:31)
[2017-12-16] MEDS: NAPROXEN 375 MG TAB PO SCH ×2 (09:18→17:43)
--- NOTE | 2017-12-16 09:38 | General Surgery Progress Note ---
Subjective Progress Notes Subjective Slept well; Feels great; No BM' No bleeding Patient Complains of: Neurological: No: Syncope, Confusion, Weakness, Dizziness, Slurred Speech Cardiovascular: No: Chest Pain, Palpitations, Orthostatic Hypotension Respiratory: No: Cough, Congestion, Shortness of Breath, Wheezing Gastrointestinal: Flatus; No Nausea, No Vomiting, No Bowel Movement Genitourinary: Dysuria, Other (Doley in place); No Hematuria, No Urinary Incontinence Musculoskeletal: Pain, Strain (Back pain- chronic), Impaired Mobility; No: Sprain Physical Exam Vital Signs Date Time Temp Pulse Resp B/P (MAP) Pulse Ox O2 Delivery O2 Flow Rate FiO2 12/16/17 08:22 93 Nasal Cannula 2.0 12/16/17 08:21 81 12/16/17 07:30 15 126/67 (86) 12/15/17 06:15 98.0 Intake and Output 12/16/17 07:00 Intake Total 1222 ml Output Total 993 ml Balance 229 ml IV Total 1222 ml Output Urine Total 993 ml General Appearance: Alert, Awake, No Acute Distress, Afebrile Neuro: No Gross deficits Eyes: PERRLA, Other (EOMI) ENT: Normal, Moist Mucous Membranes Cardiovascular: Normal Rhythm & Peripheral Pulses, Regular Rate and Rhythm, No Edema Respiratory: No Respiratory Distress, Clear to Auscultation GI: Soft and Non-Tender, Other (Active bowel sounds) : Normal Extremities: Soft and Non Tender, Warm, Pulses, Perfused, Edema Integumentary: Skin Intact without Lesion / Mass Psych: Alert & Oriented X3, Appropriate Mood & Affect Result Diagram: 12/16/17 0546 12/16/17 0546 Imaging ECHO 12/15/17: LV EF 65% RV mildly dilated but nl systolic function with 55% EF Monitor Interpretation: Normal Sinus Rhythm Assessment and Plan Problems: (1) Breast cancer Status: Chronic Assessment & Plan: Avoid IVs on the left arm (2) Diabetes Status: Chronic Assessment & Plan: Monitor FS; Measure Hem A1c 12/15/17: A1c- pending; Blood glucose 200; will decrease dextrose in IVF; remains NPO until no bleeding x >24 hours 12/15/17: Glucose better controlled today 110; no meds (3) Hypertension Status: Chronic Assessment & Plan: Hold Benazepril at this time due to her hypotension 12/15/17: Continue to hold; BP still marginal 12/16/17: BP improved but still well within the normal range; Will start low dose at 5 mg PO QD (4) Hyperlipidemia Status: Chronic Assessment & Plan: Statin daily (5) Hypothyroid Status: Chronic Assessment & Plan: Synthroid daily (6) Colonic hemorrhage Status: Acute Assessment & Plan: Admit to ICU; place additional access if bleeding resumes; Transfuse platelets; Hold ASA; Q 6 hours CBC; Bleeding localized by CTA to proximal sigmoid Colon 12/15/17: No further GI bleeding; Continue to monitor in the ICU; Hgb 12 12/16/17: HgB stable; no additional bleeding; Advance diet to DM diet and cons ider D/C today if nl BM; Will need colonoscopy in 4 weeks to evaluate colon; consider EGD if she develops melena though (7) Acute blood loss anemia Status: Acute Assessment & Plan: Transfuse 2 units PRBC; Monitor 12/15/17: HgB 12.0 this AM (after 2 units PRBC in ED) 12/16/17: HgB stable now x 48 hours; Monitor if she develops recurrent bleeding (8) Hypotension due to blood loss Status: Acute Assessment & Plan: Blood Product resuscitation for bleeding colon appears to be the source PIVs and T&C; Failed placement of Right IJ Cordis- despite being in the vein (confirmed by US) would not thread--will place femoral vein cordis (pt desires to hold off unless she develops further bleeding) Yanes to monitor urine output/end organ perfusion EKG on admission: QTc Int : 485 ms Sinus rhythm with occasional premature ventricular complexes Left axis deviation Right bundle branch block Inferior infarct , age undetermined Abnormal ECG No previous ECGs available 12/15/17: Continue to monitor in the ICU; Mean BP 60-65: treated with 2 FFP overnight when she had mild hypotension; continue to hold MARCIO inhibitor; no new bleeding noted 12/16/17: Hypotension resolved; restart HTN home meds at low dose (9) Pulmonary artery hypertension Status: Chronic Assessment & Plan: Dilated main Pulmonary Artery on CT scan to 4.2 cm ECHO to assess Pulm consult as outpt 12/15/17: ECHO today ECHO 12/15/17: LV EF 65% RV mildly dilated but nl systolic function with 55% EF No comparison; Limited views 9/23/18: Outpt followup for ECHO and Pulm HTN eval based on CT scan (10) Antiplatelet or antithrombotic long-term use Status: Chronic Assessment & Plan: Bleeding likely made worse by home aspirin use, full strength 4-5 times weekly DDAVP ordered at 0.3 mcg/kg x 1 (dose adjusted by pharmacy secondary to warning in max dose greater than 20 mcg) Transfuse 6pack platelets (ordered from [place]) Transfuse in ICU on arrival Stop Excedrin use (11) Morbid obesity due to excess calories Status: Chronic Assessment & Plan: carb restricted diet once taking PO; Nutrition consult as out pt (12) DNR (do not resuscitate) Status: Acute Assessment & Plan: Daughter and patient discussed and agreed to this plan (13) Hyponatremia Status: Acute Assessment & Plan: 12/15/17: Limit fluids: NPO; Change IVF to NS primarily and decrease rate; Monitor 12/16/17: Na 130; stop IVF; Lasix x one low dose 10 mg for potential overload (14) RBBB Status: Acute Assessment & Plan: 12/15/17: EKG on admission Left axis deviation Right bundle branch block Inferior infarct , age undetermined No previous ECGs available ECHO today; Troponin normal 12/16/17: Outpatient followup of ECHO and EKG changes since no EKG on file; Asymptomatic (15) Chronic back pain greater than 3 months duration Status: Chronic Assessment & Plan: 12/16/17: Stop ASA; Start multimodal pain management with scheduled Tylenol (1000 TID)/low dose Naprosyn (375 BID)/Gabapentin (100 TID) Followup up with primary provider as an outpatient Time Spent: > 30 min Exam Sepsis Risk: No Definite Risk Problem Qualifiers (1) Breast cancer: Breast location: unspecified site of breast Estrogen receptor status: uns pecified Patient sex: female Laterality: left Qualified Codes: C50.912 - Malignant neoplasm of unspecified site of left female breast (2) Diabetes: Diabetes mellitus type: type 2 Diabetes mellitus termite technician insulin use: without termite technician use (3) Hypertension: Hypertension type: unspecified Qualified Codes: I10 - Essential (primary) h ypertension (4) Hyperlipidemia: Hyperlipidemia type: unspecified Qualified Codes: E78.5 - Hyperlipidemia, unspecified (5) Hypothyroid: Hypothyroidism type: unspecified Qualified Codes: E03.9 - Hypothyroidism, unspecified LOUANN WALL MD Dec 16, 2017 09:38
[2017-12-16] MEDS: BENAZEPRIL HCL 10 MG TAB PO SCH (12:11)
[2017-12-17] MEDS: ACETAMINOPHEN 500 MG TAB PO SCH ×3 (01:15→16:51)
[2017-12-17 03:46] VITALS: BP 131/61
[2017-12-17] MEDS: LEVOTHYROXINE SOD 0.05 MG TAB PO SCH (05:39)
[2017-12-17 07:43] VITALS: BP 110/62
[2017-12-17] MEDS ORDERED: POLYETHYLENE GLYCOL 17 GM PKT PO SCH (09:00)
[2017-12-17] MEDS: PRAVASTATIN SOD 20 MG TAB PO SCH (09:09)
[2017-12-17] MEDS: GABAPENTIN 100 MG CAP PO SCH ×2 (09:09→13:50)
[2017-12-17] MEDS: NAPROXEN 375 MG TAB PO SCH ×2 (09:09→16:51)
[2017-12-17] MEDS: BENAZEPRIL HCL 10 MG TAB PO SCH (09:10)
[2017-12-17] MEDS: MULTIVITAMINS TAB PO SCH (09:10)
[2017-12-17] MEDS: PANTOPRAZOLE SOD 40 MG IV VIAL IVP SCH (09:12)
--- NOTE | 2017-12-17 10:12 | General Surgery Progress Note ---
Subjective Progress Notes Subjective No complaints. No stools, no NV. Physical Exam Vital Signs Date Time Temp Pulse Resp B/P (MAP) Pulse Ox O2 Delivery O2 Flow Rate FiO2 12/17/17 07:45 92 Nasal Cannula 2.0 12/17/17 07:43 97.7 80 16 110/62 (78) Intake and Output 12/17/17 06:59 Intake Total 1200 ml Output Total 2100 ml Balance -900 ml Intake Oral 1200 ml Output Urine Total 2100 ml # Voids 3 General Appearance: Alert, Awake, No Acute Distress, Afebrile Neuro: No Gross deficits Cardiovascular: Normal Rhythm & Peripheral Pulses Respiratory: No Respiratory Distress, Clear to Auscultation GI: Soft and Non-Tender Musculoskeletal: No Weakness/Pain Extremities: Soft and Non Tender, Warm, Pulses, Perfused Integumentary: Skin Intact without Lesion / Mass Psych: Alert & Oriented X3, Appropriate Mood & Affect Result Diagram: 12/16/17 0546 12/16/17 0546 Monitor Interpretation: Normal Sinus Rhythm Assessment and Plan Problems: (1) Breast cancer Status: Chronic Assessment & Plan: Avoid IVs on the left arm (2) Diabetes Status: Chronic Assessment & Plan: Monitor FS; Measure Hem A1c 12/15/17: A1c- pending; Blood glucose 200; will decrease dextrose in IVF; remains NPO until no bleeding x >24 hours 12/15/17: Glucose better controlled today 110; no meds (3) Hypertension Status: Chronic Assessment & Plan: Hold Benazepril at this time due to her hypotension 12/15/17: Continue to hold; BP still marginal 12/16/17: BP improved but still well within the normal range; Will start low dose at 5 mg PO QD 12/17/2017 BP stable. Will need to see PCP soon for outpt follow up and med management. (4) Hyperlipidemia Status: Chronic Assessment & Plan: Statin daily (5) Hypothyroid Status: Chronic Assessment & Plan: Synthroid daily (6) Colonic hemorrhage Status: Acute Assessment & Plan: Admit to ICU; place additional access if bleeding resumes; Transfuse platelets; Hold ASA; Q 6 hours CBC; Bleeding localized by CTA to pr oximal sigmoid Colon 12/15/17: No further GI bleeding; Continue to monitor in the ICU; Hgb 12 12/16/17: HgB stable; no additional bleeding; Advance diet to DM diet and consider D/C today if nl BM; Will need colonoscopy in 4 weeks to evaluate colon; consider EGD if she develops melena though 12/17/2017 Pt declines am labs due to multiple attempts for each draw. No clinical evidence of ongoing bleeding. Miralax ordered this am. Possible DC later today if normal BM. (7) Acute blood loss anemia Status: Acute Assessment & Plan: Transfuse 2 units PRBC; Monitor 12/15/17: HgB 12.0 this AM (after 2 units PRBC in ED) 12/16/17: HgB stable now x 48 hours; Monitor if she develops recurrent bleeding 12/17/2017 No clinical evidence further bleeding. As above, pt declines further lab draws. (8) Hypotension due to blood loss Status: Acute Assessment & Plan: Blood Product resuscitation for bleeding colon appears to be the source PIVs and T&C; Failed placement of Right IJ Cordis- despite being in the vein (confirmed by US) would not thread--will place femoral vein cordis (pt desires to hold off unless she develops further bleeding) Yanes to monitor urine output/end organ perfusion EKG on admission: QTc Int : 485 ms Sinus rhythm with occasional premature ventricular complexes Left axis deviation Right bundle branch block Inferior infarct , age undetermined Abnormal ECG No previous ECGs available 12/15/17: Continue to monitor in the ICU; Mean BP 60-65: treated with 2 FFP overnight when she had mild hypotension; continue to hold MARCIO inhibitor; no new bleeding noted 12/16/17: Hypotension resolved; restart HTN home meds at low dose (9) Pulmonary artery hypertension Status: Chronic Assessment & Plan: Dilated main Pulmonary Artery on CT scan to 4.2 cm ECHO to assess Pulm consult as outpt 12/15/17: ECHO today ECHO 12/15/17: LV EF 65% RV mildly dilated but nl systolic function with 55% EF No comparison; Limited views 12/16/17: Outpt followup for ECHO and Pulm HTN eval based on CT scan (10) Antiplatelet or antithrombotic long-term use Status: Chronic Assessment & Plan: Bleeding likely made worse by home aspirin use, full strength 4-5 times weekly DDAVP ordered at 0.3 mcg/kg x 1 (dose adjusted by pharmacy secondary to warning in max dose greater than 20 mcg) Transfuse 6pack platelets (ordered from [facility]) Transfuse in ICU on arrival Stop Excedrin use (11) Morbid obesity due to excess calories Status: Chronic Assessment & Plan: carb restricted diet once taking PO; Nutrition consult as out pt (12) DNR (do not resuscitate) Status: Acute Assessment & Plan: Daughter and patient discussed and agreed to this plan (13) Hyponatremia Status: Acute Assessment & Plan: 12/15/17: Limit fluids: NPO; Change IVF to NS primarily and decrease rate; Monitor 12/16/17: Na 130; stop IVF; Lasix x one low dose 10 mg for potential overload (14) RBBB Status: Acute Assessment & Plan: 12/15/17: EKG on admission Left axis deviation Right bundle branch block Inferior infarct , age undetermined No previous ECGs available ECHO today; Troponin normal 12/16/17: Outpatient followup of ECHO and EKG changes since no EKG on file; Asymptomatic (15) Chronic back pain greater than 3 months duration Status: Chronic Assessment & Plan: 12/16/17: Stop ASA; Start multimodal pain management with scheduled Tylenol (1000 TID)/low dose Naprosyn (375 BID)/Gabapentin (100 TID) Followup up with primary provider as an outpatient 12/17/2017 will cont multimodal pain meds as above. Time Spent: > 30 min Exam Sepsis Risk: No Definite Risk Problem Qualifiers (1) Breast cancer: Breast location: unspecified site of breast Estrogen receptor status: unspecified Patient sex: female Laterality: left Qualified Codes: C50.912 - Malignant neoplasm of unspecified site of left female breast (2) Diabetes: Diabetes mellitus type: type 2 Diabetes mellitus vermin exterminator insulin use: without vermin exterminator use (3) Hypertension: Hypertension type: unspecified Qualified Codes: I10 - Essential (primary) hypertension (4) Hyperlipidemia: Hyperlipidemia type: unspecified Qualified Codes: E78.5 - Hyperlipidemia, unspecified (5) Hypothyroid: Hypothyroidism type: unspecified Qualified Codes: E03.9 - Hypothyroidism, un specified VANDANA MATHEWS MD Dec 17, 2017 10:12
[2017-12-17 11:28] VITALS: BP 123/63
[2017-12-17] MEDS ORDERED: BENA10TA55 PO (16:32)
[2017-12-17] MEDS ORDERED: GABA-547 PO (16:32)
--- NOTE | 2017-12-17 16:39 | Short(Outpt) Discharge Summary ---
Discharge Summary Reason for Hosp/Final Diag: (1) Breast cancer Status: Chronic Hospital Course & Plan: Avoid IVs on the left arm (2) Diabetes Status: Chronic Hospital Course & Plan: Monitor FS; Measure Hem A1c 12/15/17: A1c- pending; Blood glucose 200; will decrease dextrose in IVF; remains NPO until no bleeding x >24 hours 12/15/17: Glucose better controlled today 110; no meds 12/17/2017: pt will call to follow up with PCP. (3) Hypertension Status: Chronic Hospital Course & Plan: Hold Benazepril at this time due to her hypotension 12/15/17: Continue to hold; BP still marginal 12/16/17: BP improved but still well within the normal range; Will start low dose at 5 mg PO QD 12/17/2017 BP stable. Will need to see PCP soon for outpt follow up and med management. 12/17/2017: pt will be DC'd on lower dose of Benazepril and follow up with PCP within one week. (4) Hyperlipidemia Status: Chronic Hospital Course & Plan: Statin daily 12/17/2017: cont home Rx. (5) Hypothyroid Status: Chronic Hospital Course & Plan: Synthroid daily 12/17/2017 cont home meds (6) Colonic hemorrhage Status: Acute Hospital Course & Plan: Admit to ICU; place additional access if bleeding resumes; Transfuse platelets; Hold ASA; Q 6 hours CBC; Bleeding localized by CTA to proximal sigmoid Colon 12/15/17: No further GI bleeding; Continue to monitor in the ICU; Hgb 12 12/16/17: HgB stable; no additional bleeding; Advance diet to DM diet and consider D/C today if nl BM; Will need colonoscopy in 4 weeks to evaluate colon; consider EGD if she develops melena though 12/17/2017 Pt declines am labs due to multiple attempts for each draw. No clinical evidence of ongoing bleeding. Miralax ordered this am. Possible DC later today if normal BM. 12/17/2017: no further BRBPR or any bowel function other than flatus. Pt strongly wants to go home and follow up with Dr Flores for colonoscopy and PCP for med eval. Teaching done. (7) Acute blood loss anemia Status: Acute Hospital Course & Plan: Transfuse 2 units PRBC; Monitor 12/15/17: HgB 12.0 this AM (after 2 units PRBC in ED) 12/16/17: HgB stable now x 48 hours; Monitor if she develops recurrent bleeding 12/17/2017 No clinical evidence further bleeding. As above, pt declines further lab draws. 12/17/2017: pt up in halls without difficulty. (8) Hypotension due to blood loss Status: Acute Hospital Course & Plan: Blood Product resuscitation for bleeding colon appears to be the source PIVs and T&C; Failed placement of Right IJ Cordis- despite being in the vein (confirmed by US) would not thread--will place femoral vein cordis (pt desires to hold off unless she develops further bleeding) Yanes to monitor urine output/end organ perfusion EKG on admission: QTc Int : 485 ms Sinus rhythm with occasional premature ventricular complexes Left axis deviation Right bundle branch block Inferior infarct , age undetermined Abnormal ECG No previous ECGs available 12/15/17: Continue to monitor in the ICU; Mean BP 60-65: treated with 2 FFP overnight when she had mild hypotension; continue to hold MARCIO inhibitor; no new bleeding noted 12/16/17: Hypotension resolved; restart HTN home meds at low dose (9) Pulmonary artery hypertension Status: Chronic Hospital Course & Plan: Dilated main Pulmonary Artery on CT scan to 4.2 cm ECHO to assess Pulm consult as outpt 12/15/17: ECHO today ECHO 12/15/17: LV EF 65% RV mildly dilated but nl systolic function with 55% EF No comparison; Limited views 12/16/17: Outpt followup for ECHO and Pulm HTN eval based on CT scan P: will see [facility] in outreach clinic. Pt has used home oxygen prior to admit and will continue at DC until further outpt evals completed. (10) Antiplatelet or antithrombotic long-term use Status: Chronic Hospital Course & Plan: Bleeding likely made worse by home aspirin use, full strength 4-5 times weekly DDAVP ordered at 0.3 mcg/kg x 1 (dose adjusted by pharmacy secondary to warning in max dose greater than 20 mcg) Transfuse 6pack platelets (ordered from [facility]) Transfuse in ICU on arrival Stop Excedrin use (11) Morbid obesity due to excess calories Status: Chronic Hospital Course & Plan: carb restricted diet once taking PO; Nutrition consult as out pt (12) DNR (do not resuscitate) Status: Acute Hospital Course & Plan: Daughter and patient discussed and agreed to this plan (13) Hyponatremia Status: Acute Hospital Course & Plan: 12/15/17: Limit fluids: NPO; Change IVF to NS primarily and decrease rate; Monitor 12/16/17: Na 130; stop IVF; Lasix x one low dose 10 mg for potential overload (14) RBBB Status: Acute Hospital Course & Plan: 12/15/17: EKG on admission Left axis deviation Right bundle branch block Inferior infarct , age undetermined No previous ECGs available ECHO today; Troponin normal 12/16/17: Outpatient followup of ECHO and EKG changes since no EKG on file; Asymptomatic (15) Chronic back pain greater than 3 months duration Status: Chronic Hospital Course & Plan: 12/16/17: Stop ASA; Start multimodal pain management with scheduled Tylenol (1000 TID)/low dose Naprosyn (375 BID)/Gabapentin (100 TID) Followup up with primary provider as an outpatient 12/17/2017 will cont multimodal pain meds as above. Departure Discharge to: Home Discharge Instructions Home Meds Active Scripts Gabapentin (GABAPENTIN) 100 Mg Capsule, 100 MG PO TID for 30 Days, #90 CAPSULE Prov:VANDANA MATHEWS MD 12/17/17 Benazepril Hcl (BENAZEPRIL HCL) 10 Mg Tab, 5 MG PO QDAY for Blood Pressure for 30 Days, #30 TAB Prov:VANDANA MATHEWS MD 12/17/17 Pravastatin Sodium (PRAVASTATIN SODIUM) 40 Mg Tablet, 1 TAB PO QDAY, #90 TAB 4 Refills Prov:RADHA BARRON MD 07/11/17 Benazepril Hcl (BENAZEPRIL HCL) 20 Mg Tab, 1 TAB PO QDAY, #90 TAB 4 Refills Prov:RADHA BARRON MD 07/11/17 Levothyroxine Sodium (LEVOTHYROXINE SODIUM) 50 Mcg Tablet, 1 TAB PO QDAY for 90 Days, #90 TAB 4 Refills Prov:RADHA BARRON MD 07/11/17 Reported Medications Docusate Sodium (COLACE) 100 Mg Capsule, 1 CAP PO DAILY, CAPSULE 07/11/17 Cholecalciferol (Vitamin D3) (VITAMIN D3) 2,000 Unit Capsule, 2 CAP PO DAILY, CAPSULE 07/11/17 Oxygen (OXYGEN) Inha, 2 L INH at Night, L 10/09/16 Multivitamin (DAILY MULTIPLE VITAMIN) 1 Each Tablet, 1 EACH PO QDAY 10/09/16 Aspirin/Acetaminophen/Caffeine (EXCEDRIN EXTRA STRENGTH CAPLET) Unknown Strength Tablet, 1 TAB PO PRN PRN for PAIN 10/09/16 Diet: Diabetic Activity: No Heavy Lifting Problem Qualifiers (1) Breast cancer: Breast location: unspecified site of breast Estrogen receptor status: unspecified Patient sex: female Laterality: left Qualified Codes: C50.912 - Malignant neoplasm of unspecified site of left female breast (2) Diabetes: Diabetes mellitus type: type 2 Diabetes mellitus alf insulin use: without alf use (3) Hypertension: Hypertension type: unspecified Qualified Codes: I10 - Essential (primary) hypertension (4) Hyperlipidemia: Hyperlipidemia type: unspecified Qualified Codes: E78.5 - Hyperlipidemia, unspecified (5) Hypothyroid: Hypothyroidism type: unspecified Qualified Codes: E03.9 - Hypothyroidism, unspecified VANDANA MATHEWS MD Dec 17, 2017 16:39
== END 2017-12-17 17:55 | disposition home or self-care (01) | DRG 378 ==
LOC: ER 14:54 → ICU 19:49 → MED 12-16 18:00
PROVIDERS: ADMIT Surgery; ATTEND Surgery
PROC: 30233N1 Transfusion of Nonautologous Red Blood Cells into Peripheral Vein, Percutaneous Approach (ICD-10-PCS; principal; 2017-12-14)
PROC: 30233R1 Transfusion of Nonautologous Platelets into Peripheral Vein, Percutaneous Approach (ICD-10-PCS; 2017-12-14)
PROC: 30233K1 Transfusion of Nonautologous Frozen Plasma into Peripheral Vein, Percutaneous Approach (ICD-10-PCS; 2017-12-14)
DX: K57.31 Diverticulosis of large intestine without perforation or abscess with bleeding (principal); Z68.41 Body mass index [BMI] 40.0-44.9, adult; D62 Acute posthemorrhagic anemia; E87.1 Hypo-osmolality and hyponatremia; K92.1 Melena; T39.015A Adverse effect of aspirin, initial encounter; E78.5 Hyperlipidemia, unspecified; I10 Essential (primary) hypertension; E03.9 Hypothyroidism, unspecified; E66.01 Morbid (severe) obesity due to excess calories; I27.20 Pulmonary hypertension, unspecified; I25.10 Atherosclerotic heart disease of native coronary artery without angina pectoris; G25.81 Restless legs syndrome; E11.9 Type 2 diabetes mellitus without complications; R09.02 Hypoxemia; Z96.643 Presence of artificial hip joint, bilateral; I45.10 Unspecified right bundle-branch block; G89.29 Other chronic pain; I95.89 Other hypotension; Z85.3 Personal history of malignant neoplasm of breast; Z99.81 Dependence on supplemental oxygen; Z90.12 Acquired absence of left breast and nipple; Z87.891 Personal history of nicotine dependence; Z88.0 Allergy status to penicillin; Z88.2 Allergy status to sulfonamides; Z79.82 Long term (current) use of aspirin; Z66 Do not resuscitate
CPT/HCPCS: 36415; 71260; 71275; 74174; 74177; 81001; 82040; 82247; 82310; 82374; 82435; 82565; 82947; 83036; 83605; 83735; 84075; 84100; 84132; 84155; 84295; 84450; 84460; 84484; 84520; 85025; 85610; 85730; 86850; 86900; 86901; 86920; 93005; 93306; 96361; 96365; 97162; 97166; 99285; A4353; C1758; C9113; J1885; J1940; J2270; J2405; J2597; J7030; J7040; J7050; P9016; P9017; P9035; Q9967

== ENCOUNTER 2018-01-23 00:35 | Day surgery (SDC) | payer MEDICARE, OTHER ==
[2017-12-15 12:03] VITALS: Ht 162.6 cm; Wt 102.1 kg
[~2018-01-23] VITALS: Ht 162.6 cm; Wt 102.1 kg
[~2018-01-23 00:35] MED LIST changes: +BENA10TA55 PO; +DICL100G39 TOP; +GABA-547 PO
[2018-01-23] MEDS ORDERED: PROPOFOL EMUL(*) 10MG/ML 20 ML 20 ML ONE ×2 (07:00→08:56)
[2018-01-23] MEDS ORDERED: LIDOCAINE/SOD BICARB 8.4% SYR ID ONE (07:40)
[2018-01-23] MEDS ORDERED: NORMOSOL R SOLN(*) 1000 ML BAG 1,000 ML IV PRN (07:40)
[2018-01-23 07:59] VITALS: BP 131/75
[2018-01-23 09:36] VITALS: BP 93/47
--- NOTE | 2018-01-23 09:50 | Short(Outpt) Discharge Summary ---
Discharge Summary Reason for Hosp/Final Diag: (1) History of GI bleed Status: Resolved Hospital Course & Plan: EGD and colonoscopy with polypectomy x5 completed without problems. Departure Discharge to: Home, Self Care Discharge Instructions Home Meds Active Scripts Benazepril Hcl (BENAZEPRIL HCL) 10 Mg Tab, 1 TAB PO QDAY for Blood Pressure for 90 Days, #90 TAB Prov:RADHA BARRON MD 01/16/18 Levothyroxine Sodium (LEVOTHYROXINE SODIUM) 50 Mcg Tablet, 1 TAB PO QDAY for 90 Days, #90 TAB 4 Refills Prov:RADHA BARRON MD 12/20/17 Pravastatin Sodium (PRAVASTATIN SODIUM) 40 Mg Tablet, 1 TAB PO QDAY, #90 TAB 4 Refills Prov:RADHA BARRON MD 07/11/17 Reported Medications Docusate Sodium (COLACE) 100 Mg Capsule, 1 CAP PO DAILY, CAPSULE 07/11/17 Cholecalciferol (Vitamin D3) (VITAMIN D3) 2,000 Unit Capsule, 2 CAP PO DAILY, CAPSULE 07/11/17 Oxygen (OXYGEN) Inha, 2 L INH at Night, L 10/09/16 Multivitamin (DAILY MULTIPLE VITAMIN) 1 Each Tablet, 1 EACH PO QDAY 10/09/16 Diet: Regular Activity: As Tolerated Special Instructions: Your upper endoscopy and colonoscopy were completed without any problems. Your upper endoscopy was normal. I removed 4 polyps from your colon and about 6 tiny polyps from your rectum and they were all sent to pathology. My office will call you in the next week or two to let you know what the polyps are and when your next colonoscopy should be. I didn't find any signs of bleeding. The bleeding you experienced in the last couple of months was likely from one of your diverticuli. ROSEANNA DOZIER MD Jan 23, 2018 09:50
[2018-01-23 10:00] VITALS: BP 92/47
[2018-01-23 10:07] VITALS: BP 104/55
[2018-01-23 10:08] VITALS: BP 115/62
== END 2018-01-23 10:48 | disposition home or self-care (01) ==
LOC: OR 00:35
PROVIDERS: ATTEND Surgery
DX: K63.5 Polyp of colon (principal)
CPT/HCPCS: 00811; 43235; 45385; 88305; J2704

== ENCOUNTER → 2018-04-09 | Outpatient (CLI) | payer MEDICARE, OTHER ==
[2017-12-15 12:03] VITALS: BMI 39.8
[~2018-04-09] MED LIST changes: +CALC1TAB32 PO
[2018-04-09 15:45] LABS: PLATELET COUNT, AUTOMATED 228 K/uL (150-450)
== END ==
LOC: LAB 15:26
PROVIDERS: ATTEND Family Medicine
DX: I10 Essential (primary) hypertension (principal); E11.9 Type 2 diabetes mellitus without complications; E03.9 Hypothyroidism, unspecified; E55.9 Vitamin D deficiency, unspecified
CPT/HCPCS: 36415; 82040; 82247; 82306; 82310; 82374; 82435; 82565; 82947; 83036; 84075; 84132; 84155; 84295; 84443; 84450; 84460; 84520; 85025

== ENCOUNTER → 2018-10-28 | Outpatient (CLI) | payer MEDICARE, OTHER ==
[2017-12-15 12:03] VITALS: BMI 39.8
== END ==
LOC: LAB 14:33
PROVIDERS: ATTEND Family Medicine
DX: B07.9 Viral wart, unspecified (principal)
CPT/HCPCS: 88305